=== PATIENT | male | born 1945 | race Caucasian/White ===

== ENCOUNTER → 2017-04-28 14:24 | Outpatient (CLI) | payer OTHER, SELFPAY ==
--- NOTE | 2017-04-28 14:30 | CT_ITS ---
STUDY: CT ABDOMEN WITH CONTRAST REASON FOR EXAM: Male, 71 years old. Left upper quadrant discomfort. RADIATION DOSAGE (If Supplied By Facility): CTDIvol = ( 15.43 ) mGy, DLP = ( 667.78 ) mGycm TECHNIQUE: Transaxial images were obtained post I.V. administration of 100 ml of Isovue 300 contrast, and with oral contrast. Sagittal and coronal images were reconstructed. Individualized dose optimization techniques were used for this CT. COMPARISON: None. FINDINGS: The visualized lung bases are unremarkable. The visualized portions of the heart are within normal limits. Normal liver. Normal gallbladder and extrahepatic biliary system. Normal spleen. The pancreas is grossly normal. There is a 3 mm calcification along the anterior aspect of the pancreatic head which may be vascular. There is no evidence of mass. Normal bilateral adrenal glands. The right kidney is of normal size and cortical thickness. There is normal contrast enhancement. There is no mass or renal calculi. There is no hydronephrosis. There is mild stranding of the perinephric fat. Normal visualized right ureter. The left kidney is of normal size and cortical thickness. There is normal contrast enhancement. There is no mass or renal calculi. There is no hydronephrosis. There is stranding of the perinephric fat and pararenal fascial planes. Normal visualized left ureter. Normal visualized stomach. Normal small intestine. There is diffuse colonic diverticulosis without acute inflammatory change. The appendix is visualized and appears normal. There is diffuse atherosclerotic calcification of the abdominal aorta with elongation and tortuosity, but without a demonstrated aneurysm or dissection. Normal inferior vena cava. Normal retroperitoneum. Normal abdominal wall. Normal osseous structures. CT/Abdomen WITH IV Contrast IMPRESSION: 1. Mild stranding of the bilateral perinephric fat without obvious renal or ureteral abnormality. 2. Colonic diverticulosis without acute inflammatory change. 3. Atherosclerotic changes of the aorta. 4. 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 Electronically Signed: Nabor Ray DO at 16:52 EST Tel [phone], Service support ,
[2017-04-28 14:46] LABS: CREATININE FINGERSTICK 1.4 mg/dL (0.70-1.30)
== END ==
PROVIDERS: Family Provider Internal Medicine; PCP Internal Medicine; Visit Provider Internal Medicine
DX: R10.12 Left upper quadrant pain (principal)
CPT/HCPCS: 74160; Q9967

== ENCOUNTER → 2024-10-25 | Outpatient (CLI) | payer MEDICARE, SELFPAY ==
[2024-10-25 15:55] LABS: Hematocrit 43.3 % (40-54); Hemoglobin 14.7 g/dL (13.0-16.5); Immature Granulocytes Count 0.030 X10^3/uL (0.0-0.0); Mean Corp Hgb Conc 33.9 g/dL (32-36); Mean Corpuscular Volume 92.7 fL (80-94); Mean Platelet Vol. 11.8 fl (6.2-12.0); NRBC Flagged by Analyzer 0 % (0-5); Platelet Count 176 K/mm3 (150-450); RBC Distribution Width CV 14.5 % (11.6-14.6); RBC Distribution Width SD 48.8 fl (35.1-43.9); Red Blood Count 4.67 M/mm3 (4.6-6.2); White Blood Count 10.2 K/mm3 (4.4-11.0)
[2024-10-25 17:35] LABS: AST(SGOT) 33 U/L (<=37); Alanine Aminotransfer ALT/SGPT 43 U/L (<=46); Albumin, Serum 4.5 g/dL (3.4-4.8); Alkaline Phosphatase 87 U/L (40-129); Anion Gap 13 (5-15); BUN 33 mg/dL (4-19); BUN/Creat Ratio 23.5 RATIO (10-20); Calcium,Total 9.8 mg/dL (7.6-11.0); Carbon Dioxide 23.1 mmol/L (21.0-32.0); Chloride 102 mmol/L (98-108); Globulin 3.0 g/dL (2.2-4.2); Glucose 107 mg/dL (70-99); Potassium 4.8 mmol/L (3.3-5.1)
== END | disposition home or self-care (01) ==
PROVIDERS: PCP Internal Medicine; Referring Provider Internal Medicine; Visit Provider Internal Medicine
DX: I49.3 Ventricular premature depolarization (principal); R53.83 Other fatigue; I10 Essential (primary) hypertension
CPT/HCPCS: 80053; 84443; 85025